=== PATIENT | male | born 1990 | race Caucasian/White ===

== ENCOUNTER 2021-02-21 13:12 | Emergency (ER) | payer MEDICAID ==
[~2021-02-21] VITALS: Ht 167.6 cm; Wt 158.8 kg
[2021-02-21 13:15] VITALS: BP_SYST 104
--- NOTE | 2021-02-21 13:15 | NUR ---
Pt triaged and placed in room 4.
--- NOTE | 2021-02-21 13:20 | NUR ---
Pt BIBA re seizure activity earlier today. Per medics, pt has hx sz but has been non compliant with medication. 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 Awaiting MD evaluation.
--- NOTE | 2021-02-21 13:25 | NUR ---
Dr Garcia to bedside to assess pt
--- NOTE | 2021-02-21 13:29 | NUR ---
Pt's mother contact number: [phone]
--- NOTE | 2021-02-21 13:44 | NUR ---
CXR being done at bedside
[2021-02-21 14:13] LABS: BASOPHILS # (AUTO) 0.1 K/uL (0.0-0.2); BASOPHILS % (AUTO) 0.6 % (0.0-2.0); CALCIUM 8.6 mg/dL (8.4-11.0); CREATININE 0.99 mg/dL (0.55-1.30); EOSINOPHILS # (AUTO) 0.1 K/uL (0.0-0.4); EOSINOPHILS % (AUTO) 0.9 % (0.0-4.0); HEMATOCRIT 48.1 % (36-54); HEMOGLOBIN 16.2 g/dL (14.0-18.0); LYMPHOCYTES # (AUTO) 0.9 K/uL (1.0-5.5); LYMPHOCYTES % (AUTO) 9.6 % (20.5-51.5); MEAN CORPUSCULAR HEMOGLOBIN 28 pg (27-31); MEAN CORPUSCULAR HGB CONC 34 % (32-36); MEAN CORPUSCULAR VOLUME 85 fL (79.0-98.0); MONOCYTES # (AUTO) 0.5 K/uL (0.0-1.0); MONOCYTES % (AUTO) 4.8 % (1.7-9.3); NEUTROPHILS # (AUTO) 8.1 K/uL (1.8-7.7); NEUTROPHILS % (AUTO) 84.1 % (40.0-70.0); PLATELET COUNT (AUTO) 209 K/uL (130-430); RED BLOOD CELL COUNT(AUTO) 5.69 MIL/uL (4.2-6.2); RED CELL DISTRIBUTION WIDTH 14.2 % (9.0-15.0); WHITE BLOOD COUNT (AUTO) 9.7 K/uL (4.8-10.8)
[2021-02-21 14:18] LABS: ALBUMIN 3.8 g/dL (3.4-4.8); TOTAL BILIRUBIN 0.4 mg/dL (0.0-1.0)
--- NOTE | 2021-02-21 14:42 | NUR ---
Patient noted talking to himself while in room alone. Patient has been provided a urine cup and urinal on arrival and informed sample is needed. Has not provided sample yet.
[2021-02-21 15:20] VITALS: BP_SYST 104
== END 2021-02-21 15:20 | disposition home or self-care (01) ==
LOC: SED 13:12
DX: R56.9 Unspecified convulsions (principal); G40.911 Epilepsy, unspecified, intractable, with status epilepticus
CPT/HCPCS: 36415; 71045; 80053; 81002; 85025; 99284